=== PATIENT | female | born 2000 | race Caucasian/White ===

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

== ENCOUNTER 2022-11-01 22:31 | Emergency (ER) | payer BC, OTHER ==
[2022-11-01 22:35] VITALS: RESP 16
[2022-11-01] MEDS ORDERED: SODIUM CHLORIDE 0.9% 1,000 ML IV ONE (22:38)
--- NOTE | 2022-11-01 22:45 | ED ---
Female Urogenital HPI - General Chief complaint: Vaginal Bleeding Stated complaint: 12 weeks preg/cramping Time Seen by Provider: 11/01/22 22:36 Source: patient, RN notes reviewed Mode of arrival: ambulatory - History of Present Illness Initial comments: This is a pleasant 22-year-old female who is A1. Patient states she is about 12 weeks . She is going by last menstrual period. States that earlier today she started getting some pelvic cramping and some vaginal bleeding. She states this is less than a normal menses. No other symptomology. Denying any lightheadedness. No palpitations. She has no significant past medical history. No diabetes. No heart disease. No bleeding disorders. No headache, no fever or chills, no changes in vision or hearing, no sore throat or difficulty with speech, no neck pain, no chest pain or shortness of breath, no abdominal pain, no nausea or vomiting, no changes in urination or bowel movements, no numbness or tingling, no extremity pain, no skin rashes or lesions. Past medical, surgical, social, and family history reviewed. MD Complaint: vaginal bleeding - Related Data Home Medications Medication Instructions Recorded Confirmed No Known Home Medications 12/15/19 02/27/21 Allergies Allergy/AdvReac Type Severity Reaction Status Date / Time No Known Allergies Allergy Verified 11/01/22 22:34 Review of Systems ROS Statement: Those systems with pertinent positive or pertinent negative responses have been documented in the HPI. ROS Other: All systems not noted in ROS Statement are negative. Past Medical History Past Medical History: No Reported History History of Any Multi-Drug Resistant Organisms: None Reported Past Surgical History: Adenoidectomy, Tonsillectomy Additional Past Surgical History / Comment(s): D&C for a miscarriage. Past Anesthesia/Blood Transfusion Reactions: No Reported Reaction Past Psychological History: No Psychological Hx Reported Smoking Status: Never smoker Past Alcohol Use History: None Reported Past Drug Use History: None Reported - Past Family History Mother Family Medical History: Hypertension Father Family Medical History: Hypertension General Exam - General Exam Comments Initial Comments: Patient does not appear to be ill or toxic. Appears to be anxious. Noted to be tachycardic. We will reevaluate heart rate after IV fluids. General appearance: alert, in no apparent distress Head exam: Present: atraumatic, normocephalic, normal inspection Eye exam: Present: normal appearance, PERRL, EOMI. Absent: scleral icterus, conjunctival injection, periorbital swelling ENT exam: Present: normal exam, normal oropharynx, mucous membranes moist, normal external ear exam. Absent: mucous membranes dry Neck exam: Present: normal inspection, full ROM. Absent: tenderness, meningis mus, lymphadenopathy Respiratory exam: Present: normal lung sounds bilaterally. Absent: respiratory distress, wheezes, rales, rhonchi, stridor Cardiovascular Exam: Present: normal rhythm, tachycardia, normal heart sounds. Absent: systolic murmur, diastolic murmur, rubs, gallop, clicks GI/Abdominal exam: Present: soft, normal bowel sounds. Absent: distended, tenderness, guarding, rebound, rigid Extremities exam: Present: normal inspection, full ROM, normal capillary refill. Absent: tenderness, pedal edema, joint swelling, calf tenderness Back exam: Present: normal inspection Neurological exam: Present: alert, oriented X3, CN II-XII intact Psychiatric exam: Present: normal affect, normal mood Skin exam: Present: warm, dry, intact, normal color. Absent: rash Course Vital Signs 11/01/22 11/02/22 11/02/22 22:32 00:12 01:30 Temperature 98.3 F 98.6 F 98.1 F Pulse Rate 124 H 77 72 Respiratory 16 16 16 Rate Blood Pressure 146/92 142/94 140/88 O2 Sat by Pulse 98 100 99 Oximetry - Reevaluation(s) Reevaluation #1: 11/02/22 00:17 Medical record is reviewed Patient clinically unchanged. Heart rate is normalized. Patient is informed of results and questions answered Patient in no distress - Consultations Consultation #1: Case discussed in detail with Dr. Demarco from obstetrics. She states the patient can follow up with Dr. Carr. If her pain becomes worse or bleeding becomes worse she should call the on-call physician. Of course out of the patient should return to the ER at any time. Medical Decision Making - Medical Decision Making Differential diagnosis: Threatened miscarriage, subchorionic hemorrhage, labor, given the dates, less likely ectopic , urinary tract infection. Quantitative beta hCG is 2241. Remainder of the CMP is essentially normal. CBC shows a white blood cell count of 14,400. Neutrophils 10,300. Remainder is normal. Urinalysis shows no evidence of infectious process and isn't normal. Blood type is O-. We will order RhoGam All findings discussed with the patient. Treatment plan discussed. Findings were discussed with the patient and her family. We will touch base with the on-call pond scaler. Patient was told to return to the ER for any signs or symptoms worsen. Told to return immediately if any other problems arise. All questions answered. Treatment plan discussed. Patient in agreement Every effort has been made to ensure accuracy of this dictation. However, due to the limitations of electronic medical records and dictation devices, errors in charting still occur. The case was discussed in detail with ED attending physician. Presentation, findings, treatment plan discussed in detail. Washing And Screening Plant Supervisor Dr. Pierce - Lab Data Result diagrams: 11/01/22 22:55 11/01/22 22:55 Lab Results 11/01/22 11/01/22 11/01/22 Range/Units 22:55 22:55 22:55 WBC 14.4 H (4.0-11.0) k/uL RBC 5.00 (3.80-5.40) m/uL Hgb 14.6 (11.4-16.0) gm/dL Hct 43.6 (34.0-46.0) % MCV 87.2 (80.0-100.0) fL MCH 29.3 (25.0-35.0) pg MCHC 33.5 (31.0-37.0) g/dL RDW 12.7 (11.5-15.5) % Plt Count 369 (150-450) k/uL MPV 8.2 Neutrophils % 71 % Lymphocytes % 21 % Monocytes % 5 % Eosinophils % 1 % Basophils % 1 % Neutrophils # 10.3 H (1.3-7.7) k/uL Lymphocytes # 3.1 (1.0-4.8) k/uL Monocytes # 0.7 (0-1.0) k/uL Eosinophils # 0.1 (0-0.7) k/uL Basophils # 0.1 (0-0.2) k/uL Sodium 137 (137-145) mmol/L Potassium 4.1 (3.5-5.1) mmol/L Chloride 105 (98-107) mmol/L Carbon Dioxide 22 (22-30) mmol/L Anion Gap 10 mmol/L BUN 4 L (7-17) mg/dL Creatinine 0.49 L (0.52-1.04) mg/dL Est GFR (CKD-EPI)AfAm >90 (>60 ml/min/1.73 sqM) Est GFR (CKD-EPI)NonAf >90 (>60 ml/min/1.73 sqM) Glucose 95 (74-99) mg/dL Calcium 9.4 (8.4-10.2) mg/dL Total Bilirubin 0.4 (0.2-1.3) mg/dL AST 29 (14-36) U/L ALT 26 (4-34) U/L Alkaline Phosphatase 83 (38-126) U/L Total Protein 6.9 (6.3-8.2) g/dL Albumin 4.2 (3.5-5.0) g/dL HCG, Quant 2241.4 mIU/mL Urine Color Urine Appearance (Clear) Urine pH (5.0-8.0) Ur Specific [place] (1.001-1.035) Urine Protein (Negative) Urine Glucose (UA) (Negative) Urine Ketones (Negative) Urine Blood (Negative) Urine Nitrite (Negative) Urine Bilirubin (Negative) Urine Urobilinogen (<2.0) mg/dL Ur Leukocyte Esterase (Negative) Blood Type O Negative Blood Type Recheck O Neg Bld Type Recheck Status No Antibody Screen NEGATIVE Spec Expiration Date 11/04/2022 - 235411/01/22 Range/Units 22:55 WBC (4.0-11.0) k/uL RBC (3.80-5.40) m/uL Hgb (11.4-16.0) gm/dL Hct (34.0-46.0) % MCV (80.0-100.0) fL MCH (25.0-35.0) pg MCHC (31.0-37.0) g/dL RDW (11.5-15.5) % Plt Count (150-450) k/uL MPV Neutrophils % % Lymphocytes % % Monocytes % % Eosinophils % % Basophils % % Neutrophils # (1.3-7.7) k/uL Lymphocytes # (1.0-4.8) k/uL Monocytes # (0-1.0) k/uL Eosinophils # (0-0.7) k/uL Basophils # (0-0.2) k/uL Sodium (137-145) mmol/L Potassium (3.5-5.1) mmol/L Chloride (98-107) mmol/L Carbon Dioxide (22-30) mmol/L Anion Gap mmol/L BUN (7-17) mg/dL Creatinine (0.52-1.04) mg/dL Est GFR (CKD-EPI)AfAm (>60 ml/min/1.73 sqM) Est GFR (CKD-EPI)NonAf (>60 ml/min/1.73 sqM) Glucose (74-99) mg/dL Calcium (8.4-10.2) mg/dL Total Bilirubin (0.2-1.3) mg/dL AST (14-36) U/L ALT (4-34) U/L Alkaline Phosphatase (38-126) U/L Total Protein (6.3-8.2) g/dL Albumin (3.5-5.0) g/dL HCG, Quant mIU/mL Urine Color Colorless Urine Appearance Clear (Clear) Urine pH 7.5 (5.0-8.0) Ur Specific [place] 1.005 (1.001-1.035) Urine Protein Negative (Negative) Urine Glucose (UA) Negative (Negative) Urine Ketones Negative (Negative) Urine Blood Negative (Negative) Urine Nitrite Negative (Negative) Urine Bilirubin Negative (Negative) Urine Urobilinogen <2.0 (<2.0) mg/dL Ur Leukocyte Esterase Negative (Negative) Blood Type Blood Type Recheck Bld Type Recheck Status Antibody Screen Spec Expiration Date - Radiology Data Radiology results: report reviewed, image reviewed Pelvic ultrasound shows evidence of demise at 8 weeks 5 weeks gestation. Intrauterine seen without evidence of heart tones. I did independently reviewed the ultrasound. Report per radiology. Disposition Clinical Impression: Missed with demise before 20 completed weeks of gestation Disposition: HOME SELF-CARE Condition: Stable Instructions (If sedation given, give patient instructions): Miscarriage (ED) Additional Instructions: Follow-up with Dr. Campbell as discussed. Return in 48 hours for repeat blood test. We did give you RhoGAM in the ER today. Is patient prescribed a controlled substance at d/c from ED?: No Referrals: Dov Campbell MD [STAFF PHYSICIAN] - 12/12/22 9:00 am Time of Disposition: 00:33
[2022-11-01 23:07] LABS: Basophils # (A) 0.1 k/uL (0-0.2); Basophils % (A) 1 %; Eosinophils # (A) 0.1 k/uL (0-0.7); Eosinophils % (A) 1 %; HCT 43.6 % (34.0-46.0); HGB 14.6 gm/dL (11.4-16.0); Lymphocytes # (A) 3.1 k/uL (1.0-4.8); Lymphocytes % (A) 21 %; MCH 29.3 pg (25.0-35.0); MCHC 33.5 g/dL (31.0-37.0); MCV 87.2 fL (80.0-100.0); Mean Platelet Volume 8.2; Monocytes # (A) 0.7 k/uL (0-1.0); Monocytes % (A) 5 %; Neutrophils # (A) 10.3 k/uL (1.3-7.7); Neutrophils % (A) 71 %; Platelet Count 369 k/uL (150-450); RDW 12.7 % (11.5-15.5); WBC 14.4 k/uL (4.0-11.0)
[2022-11-01 23:08] LABS: Appearance,Urine Clear (Clear); Bilirubin,Urine Negative (Negative); Blood,Urine Negative (Negative); Color,Urine Colorless; Glucose,Urine (UA) Negative (Negative); Ketones,Urine Negative (Negative); Leukocyte Esterase,Urine Negative (Negative); Nitrite,Urine Negative (Negative); PH, Urine 7.5 (5.0-8.0); Protein,Urine Negative (Negative); Specific Gravity,Urine 1.005 (1.001-1.035); Urobilinogen,Urine <2.0 mg/dL (<2.0)
[2022-11-01 23:30] LABS: ALT 26 U/L (4-34); African American GFR (CKD) >90 (>60 ml/min/1.73 sqM); Albumin 4.2 g/dL (3.5-5.0); Anion Gap 10 mmol/L; Blood Urea Nitrogen 4 mg/dL (7-17); Calcium 9.4 mg/dL (8.4-10.2); Carbon Dioxide 22 mmol/L (22-30); Chloride 105 mmol/L (98-107); Glucose 95 mg/dL (74-99); Non-African American GFR(CKD) >90 (>60 ml/min/1.73 sqM); Sodium 137 mmol/L (137-145); Total Bilirubin 0.4 mg/dL (0.2-1.3); Total Protein 6.9 g/dL (6.3-8.2)
[2022-11-01 23:35] LABS: AST 29 U/L (14-36); Alkaline Phosphatase 83 U/L (38-126); Potassium 4.1 mmol/L (3.5-5.1)
[2022-11-01 23:46] LABS: HCG,Quantitative Serum 2241.4 mIU/mL
--- NOTE | 2022-11-02 00:01 | US ---
EXAMINATION TYPE: Transabdominal DATE OF EXAM: 11/01/2022 11:43 PM COMPARISON: NONE CLINICAL HISTORY: pelvic pain. Pelvic cramping, spotting. Hx D and C, 1 miscarriage. A1. EXAM PERFORMED: Transvaginal (TV) and Transabdominal (TA) EXAM MEASUREMENTS: GESTATIONAL AGE / DATING Physician Established: Not yet established Dates by LMP: (13weeks/1 day) EDC: 05/08/2023 Dates by First Scan: This is first scan. Dates by Current Scan for: (8 weeks/5 days) EDC: 06/08/2023 by CRL, no heart tones seen at this time. 9 weeks/ 2 days by gestational sac measurements. MATERNAL ANATOMY Uterus:14.8 x 8.9 x 5.7 cm. Anteverted. Fluid seen in cervix: 3.1 x 0.8 x 0.3 cm. Right Ovary: 3.9 x 2.6 x 2.8 cm. Area of mixed echogenicity seen measurin.6 x 1.8 x 1.6 cm. Left Ovary: 2.5 x 1.9 x 2.0 cm. Post CDS / Adnexa: Appears wnl Presence of free fluid: No Presence of corpus luteal cyst: Possible within right ovary, area of mixed echogenicity seen as menti oned above measurin.6 x 1.8 x 1.6 cm. Presence of subchorionic bleed: Not definitely seen GESTATION / SURVEY CRL: 2.05 cm (8 weeks/5 days) MSD: 3.99 cm (9 weeks/2 days) Yolk Sac (normal less than 6mm): Possibly seen measuring 4.4 mm, limited. Heart Rate: Not visualized Rhythm: Not visualized IUP: CRL seen without heart tones visualized. Date of LMP: 08/01/2022 Beta HcG (if available): Not available IMPRESSION: There is demise at approximately 8 weeks and 5 days gestation.
[2022-11-02] MEDS ORDERED: Rhogam IMMUNE GLOBULIN 1,500 UNIT/1 ML IM ONE (00:18)
[2022-11-02 01:41] VITALS: BP 140/88; PULSE 72; TEMP 98.1
== END 2022-11-02 01:48 | disposition home or self-care (01) ==
LOC: EC 22:31
DX: O36.4XX1 Maternal care for intrauterine death, fetus 1 (principal); Z3A.08 8 weeks gestation of pregnancy
CPT/HCPCS: 36415; 86900; 86901; 80053; 85025; 86850; 81003; 84702; 76801; 76817; 99284; 96372; 96360; 96361 ×2; J2790